=== PATIENT | female | born 1940 | race Caucasian/White ===

== ENCOUNTER 2018-04-15 12:20 | Emergency (ER) | payer MEDICARE ==
[2018-04-15 14:27] VITALS: BP 142/65
[2018-04-15] MEDS ORDERED: TETANUS/DIPHTHERIA/PERTUSSIS 0.5 ML SYRINGE IM ONE (14:42)
[2018-04-15] MEDS ORDERED: LIDOCAINE 1% 2 ML VIAL SUBQ STA (14:49)
[2018-04-15] MEDS ORDERED: BACITRACIN OINT TOP STA (15:09)
--- NOTE | 2018-04-15 15:13 | ED Physician Documentation ---
History of Present Illness - Stated complaint Stated Complaint: THUMB LAC - Chief complaint Chief Complaint: Laceration - History obtained from History obtained from: Patient - Additonal information Additional information: 78-year-old female presents the emergency department with complaints of a laceration to her right thumb which occurred this afternoon. The patient has no other areas of injury. Symptoms are described as mild. The patient is not on any anticoagulants. No loss of function. The patient is not up-to-date on her tetanus Review of Systems Respiratory: denies: Cough Skin: reports: Laceration (s) Musculoskeletal: reports: Extremity pain Neurologic: denies: Head injury Immunocompromised: denies: Chemotherapy PD PAST MEDICAL HISTORY - Present Medications Home Medications: Ambulatory Orders Medication Instructions Recorded Confirmed Atenolol 04/15/18 Furosemide 04/15/18 Hydrochlorothiazide 04/15/18 Levothyroxine [Synthroid] 04/15/18 Simvastatin 04/15/18 Tamoxifen 04/15/18 04/15/18 - Allergies Allergies/Adverse Reactions: Allergies Allergy/AdvReac Type Severity Reaction Status Date / Time No Known Drug Allergies Allergy Verified 04/15/18 12:25 PD ED PE NORMAL - General General: Alert and oriented X 3, No acute distress - HEENT HEENT: Atraumatic - Derm Derm: Other (1 cm laceration on the Tip of the left thumb on the volar side, No active bleeding, no foreign body, no evidence of ligamentous injury. The patient has full range of motion, normal radial pulse normal sensation to light touch) - Extremities Extremities: No deformity, Normal ROM s pain - Neuro Neuro: Alert and oriented X 3 - Psych Psych: Normal mood Results - Vitals Vitals: Vital Signs - 24 hr 04/15/18 04/15/18 12:23 14:26 Temperature 36.5 C 36.0 C L Heart Rate 63 64 Respiratory 18 16 Rate Blood Pressure 169/87 H 142/65 H O2 Saturation 99 98 Oxygen O2 Source Room air Procedures - Laceration (location) Upper extremity right Wound type: Linear Neurovascular status: Sensory intact, Motor intact, Vascular intact Anesthesia: Lidocaine 1% Wound Preparation: Betadine, Wound explored. No: FB identified, FB removed Deep layer closure: # sutures - enter number (one) Skin layer closure: Nylon Other: Patient tolerated well Complexity: Simple PD MEDICAL DECISION MAKING - ED course ED course: The wound was closed using sutures, the patient's tetanus was up-to-date and the patient appears appropriate for discharge home and I recommended having her sutures removed in 7 days. I discussed warning signs and recommended returning to the emergency department for any worsening or concerns. - Sepsis Event Vital Signs: Vital Signs - 24 hr 04/15/18 04/15/18 12:23 14:26 Temperature 36.5 C 36.0 C L Heart Rate 63 64 Respiratory 18 16 Rate Blood Pressure 169/87 H 142/65 H O2 Saturation 99 98 Oxygen O2 Source Room air Departure - Departure Disposition: 01 Home, Self Care Clinical Impression: Laceration Condition: Good Instructions: ED Laceration All Comments: These have your sutures removed in 7 days. Please return to the emergency department for any worsening or any concerns.
== END 2018-04-15 15:45 | disposition home or self-care (01) ==
LOC: ED 12:20
DX: S61.011A Laceration without foreign body of right thumb without damage to nail, initial encounter (principal); W26.0XXA Contact with knife, initial encounter
CPT/HCPCS: 12001; 90471; 99283